=== PATIENT | male | born 1950 | race Caucasian/White ===

== ENCOUNTER 2019-03-10 15:55 | Inpatient (IN) | payer MEDICARE ==
[2019-03-10] MEDS ORDERED: SODIUM CHLORIDE 0.9% 500 ML 500 ML IV STA (16:07)
[2019-03-10] MEDS ORDERED: ACETAMINOPHEN TAB 500 MG TAB PO STA (16:07)
[2019-03-10] MEDS ORDERED: IBUPROFEN 600 MG TAB PO STA (16:07)
[2019-03-10] MEDS ORDERED: SODIUM CHLORIDE 0.9% 1,000 ML IV STA ×2 (16:07)
--- NOTE | 2019-03-10 16:14 | ED ---
Weakness HPI - General Chief complaint: Headache Stated complaint: weakness, lethargic Time Seen by Provider: 03/10/19 16:07 Source: patient, RN notes reviewed, old records reviewed Mode of arrival: wheelchair Limitations: no limitations - History of Present Illness Initial comments: This is a 69-year-old male the ER for evaluation presents today for evaluation regards to weakness headaches not feeling well 5 days. Patient has had fever. Nausea no vomiting. No chest pain or shortness of breath medical history of COPD high blood pressure. No current chest pain. No recent travel history or sick contacts MD Complaint: generalized weakness, lack of energy -: days(s) (5) Location: generalized Severity: mild Severity scale (1-10): 2 Consistency: intermittent Improves with: none Worsens with: none Context: recent illness Associated Symptoms: fever/chills, headaches, loss of appetite - Related Data Home Medications Medication Instructions Recorded Confirmed Aclidinium [place] [Tudorza 1 puff INHALATION RT-BID 03/10/19 03/10/19 Pressair] Lisinopril [Zestril] 20 mg PO DAILY 03/10/19 03/10/19 Omeprazole 20 mg PO DAILY 03/10/19 03/10/19 Allergies Allergy/AdvReac Type Severity Reaction Status Date / Time bee venom protein (honey bee) Allergy Swelling Verified 03/10/19 17:18 Penicillins Allergy Rash/Hives Verified 03/10/19 17:18 Review of Systems ROS Statement: Those systems with pertinent positive or pertinent negative responses have been documented in the HPI. ROS Other: All systems not noted in ROS Statement are negative. Past Medical History Past Medical History: COPD, GERD/Reflux, Hypertension History of Any Multi-Drug Resistant Organisms: None Reported Past Surgical History: No Surgical Hx Reported Past Psychological History: No Psychological Hx Reported Smoking Status: Former smoker Past Alcohol Use History: None Reported Past Drug Use History: Marijuana General Exam Limitations: no limitations General appearance: alert, in no apparent distress Head exam: Present: atraumatic, normocephalic, normal inspection Eye exam: Present: normal appearance, PERRL, EOMI. Absent: scleral icterus, conjunctival injection, periorbital swelling ENT exam: Present: normal exam, mucous membranes moist Neck exam: Present: normal inspection. Absent: tenderness, meningismus, lymphadenopathy Respiratory exam: Present: normal lung sounds bilaterally. Absent: respiratory distress, wheezes, rales, rhonchi, stridor Cardiovascular Exam: Present: regular rate, normal rhythm, normal heart sounds. Absent: systolic murmur, diastolic murmur, rubs, gallop, clicks GI/Abdominal exam: Present: soft, normal bowel sounds. Absent: distended, tenderness, guarding, rebound, rigid Extremities exam: Present: normal inspection, full ROM, normal capillary refill. Absent: tenderness, pedal edema, joint swelling, calf tenderness Back exam: Present: normal inspection Neurological exam: Present: alert, oriented X3, CN II-XII intact Psychiatric exam: Present: normal affect, normal mood Skin exam: Present: warm, dry, intact, normal color. Absent: rash Course Vital Signs 03/10/19 03/10/19 15:57 19:30 Temperature 100.5 F H 98.3 F Pulse Rate 99 56 L Respiratory 20 18 Rate Blood Pressure 118/84 108/75 O2 Sat by Pulse 97 96 Oximetry - Reevaluation(s) Reevaluation #1: 03/10/19 16:46 Medical records reviewed Reevaluation #2: 03/10/19 19:36 Patient feels significantly improved with fever control and hydration Medical Decision Making - Medical Decision Making 69 male the ER for evaluation of fever body aches and pains occasional headache. Patient has primary office yesterday for similar complaints. Patient presents ER for complaints of same. No meningeal signs on exam. Patient be admitted for IV antibiotics, and symptomatic treatment. Pending blood cultures - Lab Data Result diagrams: 03/10/19 16:36 03/10/19 16:36 Lab Results 03/10/19 03/10/19 03/10/19 Range/Units 16:36 16:36 16:36 WBC 9.6 (3.8-10.6) k/uL RBC 4.52 (4.30-5.90) m/uL Hgb 14.6 (13.0-17.5) gm/dL Hct 42.3 (39.0-53.0) % MCV 93.6 (80.0-100.0) fL MCH 32.4 (25.0-35.0) pg MCHC 34.6 (31.0-37.0) g/dL RDW 14.6 (11.5-15.5) % Plt Count 336 (150-450) k/uL Neutrophils % 64 % Lymphocytes % 25 % Monocytes % 8 % Eosinophils % 1 % Basophils % 0 % Neutrophils # 6.1 (1.3-7.7) k/uL Lymphocytes # 2.4 (1.0-4.8) k/uL Monocytes # 0.7 (0-1.0) k/uL Eosinophils # 0.1 (0-0.7) k/uL Basophils # 0.0 (0-0.2) k/uL Sodium 133 L (137-145) mmol/L Potassium 4.3 (3.5-5.1) mmol/L Chloride 101 (98-107) mmol/L Carbon Dioxide 19 L (22-30) mmol/L Anion Gap 13 mmol/L BUN 22 H (9-20) mg/dL Creatinine 0.99 (0.66-1.25) mg/dL Est GFR (CKD-EPI)AfAm 89 (>60 ml/min/1.73 sqM) Est GFR (CKD-EPI)NonAf 77 (>60 ml/min/1.73 sqM) Glucose 109 H (74-99) mg/dL Plasma Lactic Acid [place] 1.1 (0.7-2.0) mmol/L Calcium 9.7 (8.4-10.2) mg/dL Phosphorus 3.2 (2.5-4.5) mg/dL Magnesium 2.0 (1.6-2.3) mg/dL Total Bilirubin 1.1 (0.2-1.3) mg/dL AST 22 (17-59) U/L ALT 20 L (21-72) U/L Alkaline Phosphatase 57 (38-126) U/L Total Protein 7.6 (6.3-8.2) g/dL Albumin 4.3 (3.5-5.0) g/dL Urine Color Urine Appearance (Clear) Urine pH (5.0-8.0) Ur Specific [place] (1.001-1.035) Urine Protein (Negative) Urine Glucose (UA) (Negative) Urine Ketones (Negative) Urine Blood (Negative) Urine Nitrite (Negative) Urine Bilirubin (Negative) Urine Urobilinogen (<2.0) mg/dL Ur Leukocyte Esterase (Negative) Urine WBC (0-5) /hpf Hyaline Casts (0-2) /lpf Urine Mucus (None) /hpf Influenza Type A RNA (Not Detectd) Influenza Type B (PCR) (Not Detectd) 03/10/19 03/10/19 Range/Units 17:15 17:18 WBC (3.8-10.6) k/uL RBC (4.30-5.90) m/uL Hgb (13.0-17.5) gm/dL Hct (39.0-53.0) % MCV (80.0-100.0) fL MCH (25.0-35.0) pg MCHC (31.0-37.0) g/dL RDW (11.5-15.5) % Plt Count (150-450) k/uL Neutrophils % % Lymphocytes % % Monocytes % % Eosinophils % % Basophils % % Neutrophils # (1.3-7.7) k/uL Lymphocytes # (1.0-4.8) k/uL Monocytes # (0-1.0) k/uL Eosinophils # (0-0.7) k/uL Basophils # (0-0.2) k/uL Sodium (137-145) mmol/L Potassium (3.5-5.1) mmol/L Chloride (98-107) mmol/L Carbon Dioxide (22-30) mmol/L Anion Gap mmol/L BUN (9-20) mg/dL Creatinine (0.66-1.25) mg/dL Est GFR (CKD-EPI)AfAm (>60 ml/min/1.73 sqM) Est GFR (CKD-EPI)NonAf (>60 ml/min/1.73 sqM) Glucose (74-99) mg/dL Plasma Lactic Acid [place] (0.7-2.0) mmol/L Calcium (8.4-10.2) mg/dL Phosphorus (2.5-4.5) mg/dL Magnesium (1.6-2.3) mg/dL Total Bilirubin (0.2-1.3) mg/dL AST (17-59) U/L ALT (21-72) U/L Alkaline Phosphatase (38-126) U/L Total Protein (6.3-8.2) g/dL Albumin (3.5-5.0) g/dL Urine Color Yellow Urine Appearance Cloudy (Clear) Urine pH 6.0 (5.0-8.0) Ur Specific [place] 1.031 (1.001-1.035) Urine Protein 1+ H (Negative) Urine Glucose (UA) Negative (Negative) Urine Ketones 2+ H (Negative) Urine Blood Negative (Negative) Urine Nitrite Negative (Negative) Urine Bilirubin Negative (Negative) Urine Urobilinogen <2.0 (<2.0) mg/dL Ur Leukocyte Esterase Negative (Negative) Urine WBC 8 H (0-5) /hpf Hyaline Casts 52 H (0-2) /lpf Urine Mucus Many H (None) /hpf Influenza Type A RNA Not Detected (Not Detectd) Influenza Type B (PCR) Not Detected (Not Detectd) - Radiology Data Radiology results: report reviewed (Chest x-rays negative for acute disease), image reviewed Disposition Clinical Impression: Fever, Weakness, Myalgia Disposition: ADMITTED IP TO THIS [facility] Condition: Good Is patient prescribed a controlled substance at d/c from ED?: No Referrals: Jared Stark III, MD [Primary Care Provider] - 1-2 days
[2019-03-10 16:57] LABS: Basophils % (A) 0 %; Eosinophils # (A) 0.1 k/uL (0-0.7); Eosinophils % (A) 1 %; HCT 42.3 % (39.0-53.0); HGB 14.6 gm/dL (13.0-17.5); Lymphocytes # (A) 2.4 k/uL (1.0-4.8); Lymphocytes % (A) 25 %; MCH 32.4 pg (25.0-35.0); MCHC 34.6 g/dL (31.0-37.0); MCV 93.6 fL (80.0-100.0); Monocytes # (A) 0.7 k/uL (0-1.0); Monocytes % (A) 8 %; Neutrophils # (A) 6.1 k/uL (1.3-7.7); Neutrophils % (A) 64 %; Platelet Count 336 k/uL (150-450); RBC 4.52 m/uL (4.30-5.90); RDW 14.6 % (11.5-15.5); WBC 9.6 k/uL (3.8-10.6)
[2019-03-10 17:03] LABS: Albumin 4.3 g/dL (3.5-5.0); Calcium 9.7 mg/dL (8.4-10.2); Phosphorus 3.2 mg/dL (2.5-4.5); Potassium 4.3 mmol/L (3.5-5.1); Total Bilirubin 1.1 mg/dL (0.2-1.3); Total Protein 7.6 g/dL (6.3-8.2)
--- NOTE | 2019-03-10 17:07 | XR ---
EXAMINATION TYPE: XR chest 2V DATE OF EXAM: 03/10/2019 COMPARISON: NONE HISTORY: Short of breath TECHNIQUE: Frontal and lateral views of the chest are obtained. FINDINGS: Heart and mediastinum are normal. Lungs are clear. Costophrenic angles are clear. Bony tho rax is intact. There are no hilar masses. IMPRESSION: No active cardiopulmonary disease.
[2019-03-10 17:27] LABS: Appearance,Urine Cloudy (Clear); Bilirubin,Urine Negative (Negative); Blood,Urine Negative (Negative); Color,Urine Yellow; Glucose,Urine (UA) Negative (Negative); Hyaline Casts,Urine 52 /lpf (0-2); Ketones,Urine 2+ (Negative); Leukocyte Esterase,Urine Negative (Negative); Mucus,Urine Many /hpf; Nitrite,Urine Negative (Negative); Protein,Urine 1+ (Negative); Specific Gravity,Urine 1.031 (1.001-1.035); Urobilinogen,Urine <2.0 mg/dL (<2.0); WBC,Urine 8 /hpf (0-5)
--- NOTE | 2019-03-10 18:32 | CT ---
EXAMINATION TYPE: CT brain wo con DATE OF EXAM: 03/10/2019 COMPARISON: None HISTORY: Headache and fatigue. CT DLP: 1141.4 mGycm Automated exposure control for dose reduction was used. FINDINGS: There is mild cerebral cortical atrophy. There is no mass effect nor midline shift. There is no sign of intracranial hemorrhage. There is no evidence of cerebral edema. Calvarium is intact. There is def ormity of the left orbital floor consistent with an old blowout fracture. IMPRESSION: NO ACUTE INTRACRANIAL ABNORMALITY.
[2019-03-10] MEDS: SODIUM CHLORIDE 0.9% 500 ML 500 ML IV SCH ×3 (20:28→21:53)
[2019-03-10 21:26] VITALS: BMI 24.3
[2019-03-10] MEDS: MELATONIN 3 MG TABLET PO PRN (22:13)
[2019-03-10] MEDS: LACTATED RINGERS 1,000 ML IV SCH (23:09)
[2019-03-11] MEDS ORDERED: ACETAMINOPHEN TAB 325 MG TAB PO PRN (01:50)
[2019-03-11] MEDS: LACTATED RINGERS 1,000 ML IV SCH ×2 (02:17→11:13)
[2019-03-11] MEDS ORDERED: PANTOPRAZOLE 40 MG TABLET PO SCH (07:30)
[2019-03-11] MEDS: LISINOPRIL 20 MG TAB PO SCH (08:22)
[2019-03-11] MEDS: Omeprazole [Omeprazole] 20 MG PO SCH (08:22)
[2019-03-11] MEDS: ENOXAPARIN 40 MG/0.4 ML SYRINGE SQ SCH (08:23)
[2019-03-11] MEDS ORDERED: LISINOPRIL 20 MG TAB PO SCH (09:00)
[2019-03-11] MEDS: BUTALB/APAP/CAFF 50-325-40MG TAB PO PRN ×4 (11:22→23:56)
[2019-03-11] MEDS: ACLIDINIUM BROMIDE INHALATION SCH ×2 (11:57→19:09)
[2019-03-11] MEDS ORDERED: FAMOTIDINE 20 MG TAB PO SCH (12:45)
[2019-03-11] MEDS: SODIUM CHLORIDE 0.9% 1,000 ML IV SCH ×2 (15:34→19:49)
--- NOTE | 2019-03-11 15:51 | P.HPIM ---
History of Present Illness 69-year-old pleasant gentleman came in with complains of Flagyl is weakness and headaches has been going on for 5 days patient does have body aches no evidence of tobacco infection at this time patient rapidly had photophobia first couple days a he denied any photophobia at this time patient does have some neck pain no nuchal rigidity no evidence of meningitis at this time. Patient denied any recent sick contacts or travel. Patient denied any cough. Patient denied any dysuria patient urine is bit abnormal but not convincing for urinary tract infection patient was given Rocephin empirically for possible urinary tract infection. Urine cultures are pending blood cultures are pending patient had fever yesterday. Patient appears to have widely less most probably upper respiratory with sinusitis and sore throat and pharyngitis. Review of Systems REVIEW OF SYSTEMS: CONSTITUTIONAL: As mentioned in HPI HEENT: No recent visual problems or hearing problems. Denied any sore throat. CARDIOVASCULAR: No chest pain, orthopnea, PND, no palpitations, no syncope. PULMONARY: No shortness of breath, no cough, no hemoptysis. GASTROINTESTINAL: No diarrhea, no nausea, no vomiting, no abdominal pain. NEUROLOGICAL: No headaches, no weakness, no numbness. HEMATOLOGICAL: Denies any bleeding or petechiae. GENITOURINARY: Denies any burning micturition, frequency, or urgency. MUSCULOSKELETAL/RHEUMATOLOGICAL: Denies any joint pain, swelling, or any muscle pain. ENDOCRINE: Denies any polyuria or polydipsia. The rest of the 14-point review of systems is negative. Past Medical History Past Medical History: COPD, GERD/Reflux, Hypertension History of Any Multi-Drug Resistant Organisms: None Reported Past Surgical History: No Surgical Hx Reported Past Psychological History: No Psychological Hx Reported Smoking Status: Former smoker Past Alcohol Use History: None Reported Past Drug Use History: Marijuana - Past Family History Sister(s) Family Medical History: No Reported History Medications and Allergies Home Medications Medication Instructions Recorded Confirmed Type Aclidinium [place] [Tudorza 1 puff INHALATION RT-BID 03/10/19 03/10/19 History Pressair] Lisinopril [Zestril] 20 mg PO DAILY 03/10/19 03/10/19 History Omeprazole 20 mg PO DAILY 03/10/19 03/10/19 History Allergies Allergy/AdvReac Type Severity Reaction Status Date / Time bee venom protein (honey bee) Allergy Swelling Verified 03/10/19 17:18 Penicillins Allergy Rash/Hives Verified 03/10/19 17:18 Physical Exam Vitals: Vital Signs Temp Pulse Pulse Resp BP BP Pulse Ox 03/11/19 15:32 99.4 F 64 16 137/79 97 03/11/19 07:10 99.5 F 60 18 143/80 99 03/11/19 03:30 98.3 F 56 L 17 121/74 97 03/10/19 21:08 98.3 F 55 L 16 115/64 97 03/10/19 19:30 98.3 F 56 L 18 108/75 96 03/10/19 15:57 100.5 F H 99 20 118/84 97 Intake and Output 03/11/19 03/11/19 03/11/19 06:59 14:59 22:59 Intake Total 480 Output Total 100 Balance 380 Intake: Oral 480 Output: Urine 100 Other: # Voids 1 3 Weight 74.843 kg PHYSICAL EXAMINATION: GENERAL: The patient is alert and oriented x3, not in any acute distress. Well developed, well nourished. HEENT: Pupils are round and equally reacting to light. EOMI. No scleral icterus. No conjunctival pallor. Normocephalic, atraumatic. No pharyngeal erythema. No thyromegaly. CARDIOVASCULAR: S1 and S2 present. No murmurs, rubs, or gallops. PULMONARY: Chest is clear to auscultation, no wheezing or crackles. ABDOMEN: Soft, nontender, nondistended, normoactive bowel sounds. No palpable organomegaly. MUSCULOSKELETAL: No joint swelling or deformity. EXTREMITIES: No cyanosis, clubbing, or pedal edema. NEUROLOGICAL: Gross neurological examination did not reveal any focal deficits. SKIN: No rashes. Results CBC & Chem 7: 03/10/19 16:36 03/10/19 16:36 Labs: Abnormal Lab Results - Last 24 Hours (Table) 03/10/19 03/10/19 Range/Units 16:36 17:15 Sodium 133 L (137-145) mmol/L Carbon Dioxide 19 L (22-30) mmol/L BUN 22 H (9-20) mg/dL Glucose 109 H (74-99) mg/dL ALT 20 L (21-72) U/L Urine Protein 1+ H (Negative) Urine Ketones 2+ H (Negative) Urine WBC 8 H (0-5) /hpf Hyaline Casts 52 H (0-2) /lpf Urine Mucus Many H (None) /hpf Microbiology - Last 24 Hours (Table) 03/10/19 17:15 Urine Culture - Preliminary Urine,Voided Thrombosis Risk Factor Assmnt - Choose All That Apply Any of the Below Risk Factors Present?: Yes Each Factor Represents 1 point: Abnormal pulmonary function (COPD) Other Risk Factors: Yes Each Risk Factor Represents 2 Points: Age 61-74 years Thrombosis Risk Factor Assessment Total Risk Factor Score: 3 Thrombosis Risk Factor Assessment Level: Moderate Risk Assessment and Plan Plan: -System inflammatory response syndrome or sepsis secondary to acute viral illness mostly upper respiratory. Patient is on empiric antibiotic which she'll continue for now my suspicion is low for urinary tract infection [place]- -Hypovolemic hyponatremia patient will be continued on IV fluids expected to improve with IV fluids COPD without any acute acceleration Hypogastrics of his reflux disease next and have an hypertension -Marijuana use: Counseling was provided DVT prophylaxis early ambulation
[2019-03-11] MEDS: MELATONIN 3 MG TABLET PO PRN (23:56)
[2019-03-12] MEDS ORDERED: TEMAZEPAM 15 MG CAP PO PRN (00:06)
[2019-03-12] MEDS: BUTALB/APAP/CAFF 50-325-40MG TAB PO PRN ×2 (05:47→10:02)
[2019-03-12 07:18] LABS: HCT 35.2 % (39.0-53.0); MCH 32.3 pg (25.0-35.0); MCHC 34.1 g/dL (31.0-37.0); MCV 94.6 fL (80.0-100.0); Mean Platelet Volume 6.6; Platelet Count 214 k/uL (150-450); RBC 3.72 m/uL (4.30-5.90); RDW 13.1 % (11.5-15.5); WBC 7.6 k/uL (3.8-10.6)
[2019-03-12 07:32] LABS: African American GFR (CKD) >90 (>60 ml/min/1.73 sqM); Anion Gap 8 mmol/L; Blood Urea Nitrogen 12 mg/dL (9-20); Calcium 8.4 mg/dL (8.4-10.2); Carbon Dioxide 22 mmol/L (22-30); Chloride 104 mmol/L (98-107); Glucose 98 mg/dL (74-99); Potassium 3.8 mmol/L (3.5-5.1); Sodium 134 mmol/L (137-145)
[2019-03-12 07:54] VITALS: BP 127/74; PULSE 62; RESP 16; TEMP 98.6
[2019-03-12] MEDS: LISINOPRIL 20 MG TAB PO SCH (08:50)
[2019-03-12] MEDS: ENOXAPARIN 40 MG/0.4 ML SYRINGE SQ SCH (08:51)
[2019-03-12] MEDS: Omeprazole [Omeprazole] 20 MG PO SCH (08:53)
[2019-03-12] MEDS: ACLIDINIUM BROMIDE INHALATION SCH (09:18)
--- NOTE | 2019-03-12 12:19 | P.DS ---
Providers Date of admission: 03/10/19 19:37 Attending physician: Joni Kearney Primary care physician: Jared Coates [facility] Course: 69-year-old pleasant gentleman came in with complains of Flagyl is weakness and headaches has been going on for 5 days patient does have body aches no evidence of tobacco infection at this time patient rapidly had photophobia first couple days a he denied any photophobia at this time patient does have some neck pain no nuchal rigidity no evidence of meningitis at this time. Patient denied any recent sick contacts or travel. Patient denied any cough. Patient denied any dysuria patient urine is bit abnormal but not convincing for urinary tract infection patient was given Rocephin empirically for possible urinary tract infection. Urine cultures are pending blood cultures are pending patient had fever yesterday. Patient appears to have widely less most probably upper respiratory with sinusitis and sore throat and pharyngitis. 03/12/2019 patient is afebrile today except for mild low-grade fever yesterday. Patient is feeling much better today. patient has a viral upper respiratory illness. Patient will be discharged on empiric Ativan except for Fridays patient hyponatremia improved with IV fluids. Patient is requesting to go home. PHYSICAL EXAMINATION: GENERAL: The patient is alert and oriented x3, not in any acute distress. Well developed, well nourished. HEENT: Pupils are round and equally reacting to light. EOMI. No scleral icterus. No conjunctival pallor. Normocephalic, atraumatic. No pharyngeal erythema. No thyromegaly. CARDIOVASCULAR: S1 and S2 present. No murmurs, rubs, or gallops. PULMONARY: Chest is clear to auscultation, no wheezing or crackles. ABDOMEN: Soft, nontender, nondistended, normoactive bowel sounds. No palpable organomegaly. MUSCULOSKELETAL: No joint swelling or deformity. EXTREMITIES: No cyanosis, clubbing, or pedal edema. NEUROLOGICAL: Gross neurological examination did not reveal any focal deficits. SKIN: No rashes. Assessment and Plan Plan: -System inflammatory response syndrome or sepsis secondary to acute viral illness mostly upper respiratory. my suspicion is low for urinary tract infection. -Hypovolemic hyponatremiaimproved with IV fluids COPD without any acute acceleration gastroesophageal reflux disease hypertension Patient Condition at Discharge: Good Plan - Discharge Summary Discharge Rx Participant: Yes New Discharge Prescriptions: New Cefuroxime Axetil [Ceftin] 500 mg PO BID 5 Days #10 tab Butalb/APAP/Caff 50-325-40Mg [Fioricet 50-325-40] 1 each PO Q4HR PRN #30 tab PRN Reason: Headache Continue Lisinopril [Zestril] 20 mg PO DAILY Aclidinium [place] [Tudorza Pressair] 1 puff INHALATION RT-BID Omeprazole 20 mg PO DAILY Discharge Medication List Aclidinium [place] [Tudorza Pressair] 1 puff INHALATION RT-BID 03/10/19 [History ] Lisinopril [Zestril] 20 mg PO DAILY 03/10/19 [History] Omeprazole 20 mg PO DAILY 03/10/19 [History] Butalb/APAP/Caff 50-325-40Mg [Fioricet 50-325-40] 1 each PO Q4HR PRN #30 tab 03/12/19 [Rx] Cefuroxime Axetil [Ceftin] 500 mg PO BID 5 Days #10 tab 03/12/19 [Rx] Follow up Appointment(s)/Referral(s): Jared Stark III, MD [Primary Care Provider] - 3 Days
== END 2019-03-12 12:58 | disposition home or self-care (01) | DRG 872 ==
LOC: EC 15:55 → 4SSUR 19:37
PROVIDERS: ADMIT Hospitalist; ATTEND Hospitalist
DX: A41.9 Sepsis, unspecified organism (principal); E87.1 Hypo-osmolality and hyponatremia; E86.1 Hypovolemia; I10 Essential (primary) hypertension; J44.9 Chronic obstructive pulmonary disease, unspecified; K21.9 Gastro-esophageal reflux disease without esophagitis; Z79.899 Other long term (current) drug therapy; Z87.891 Personal history of nicotine dependence; J01.90 Acute sinusitis, unspecified; B97.89 Other viral agents as the cause of diseases classified elsewhere; J02.8 Acute pharyngitis due to other specified organisms; Z88.0 Allergy status to penicillin; Z91.030 Bee allergy status
CPT/HCPCS: 36415; 70450; 71046; 80048; 80053; 81001; 83605; 83735; 84100; 85025; 85027; 87040; 87086; 87502; 93005; 94640; 96361; 96365; 99285

== ENCOUNTER 2019-03-18 10:56 | Emergency (ER) | payer MEDICARE ==
[2019-03-18 11:11] VITALS: RESP 18
[2019-03-18] MEDS ORDERED: KETOROLAC 30 MG/ML 1 ML VIAL IVP STA (11:38)
[2019-03-18] MEDS ORDERED: SODIUM CHLORIDE 0.9% 1,000 ML IV STA (11:38)
[2019-03-18] MEDS ORDERED: ACETAMINOPHEN TAB 325 MG TAB PO STA (11:39)
--- NOTE | 2019-03-18 11:45 | ED ---
General Adult HPI - General Chief complaint: Recheck/Abnormal Lab/Rx Stated complaint: headache Time Seen by Provider: 03/18/19 11:22 Source: patient Mode of arrival: wheelchair Limitations: no limitations - History of Present Illness Initial comments: Patient is a 69-year-old male presenting to the emergency Department with complaints of headache and fatigue 2 weeks. Patient was recently in the ER for similar issue approximately 8 days ago and was admitted for 2 days. Patient just finished a course of antibiotics and was given Fioricet for headaches. Patient states the medicine is not working and he is still having headaches. Patient has not been eating and drinking as normal, no appetite. Patient also states "his skin hurts." Patient has been keeping track of his temperature, there has been no fevers however patient states he is not sure if his new thermometer is working. Patient does admit that prior to first hospital admission, he did receive the shingles vaccine. Patient's sister is here with him now, and states she has been reading that the shingles vaccine can sometimes have a lot of side effects. Patient admits to having bowel movement this morning, was normal. Patient denies any chest pain, shortness of breath, vomi ting, diarrhea, urinary complaints. - Related Data Home Medications Medication Instructions Recorded Confirmed Aclidinium Orlando [Tudorza 1 puff INHALATION RT-BID 03/10/19 03/10/19 Pressair] Lisinopril [Zestril] 20 mg PO DAILY 03/10/19 03/10/19 Omeprazole 20 mg PO DAILY 03/10/19 03/10/19 Previous Rx's Medication Instructions Recorded Butalb/APAP/Caff 50-325-40Mg 1 each PO Q4HR PRN #30 tab 03/12/19 [Fioricet 50-325-40] Cefuroxime Axetil [Ceftin] 500 mg PO BID 5 Days #10 tab 03/12/19 Ketorolac [Toradol] 10 mg PO Q8HR #15 tab 03/18/19 Ondansetron Odt [Zofran Odt] 4 mg PO Q8HR PRN #10 tab 03/18/19 Allergies Allergy/AdvReac Type Severity Reaction Status Date / Time bee venom protein (honey bee) Allergy Swelling Verified 03/18/19 11:04 Penicillins Allergy Rash/Hives Verified 03/18/19 11:04 Review of Systems ROS Statement: Those systems with pertinent positive or pertinent negative responses have been documented in the HPI. ROS Other: All systems not noted in ROS Statement are negative. Past Medical History Past Medical History: COPD, GERD/Reflux, Hypertension History of Any Multi-Drug Resistant Organisms: None Reported Past Surgical History: No Surgical Hx Reported Past Psychological History: No Psychological Hx Reported Smoking Status: Former smoker Past Alcohol Use History: None Reported Past Drug Use History: Marijuana - Past Family History Sister(s) Family Medical History: No Reported History General Exam - General Exam Comments Initial Comments: GENERAL: Well-appearing, well-nourished and in no acute distress. HEAD: Atraumatic, normocephalic. EYES: Pupils equal round and reactive to light, extraocular movements intact, sclera anicteric, conjunctiva are normal. ENT: TMs normal, nares patent, oropharynx clear without exudates. Moist mucous membranes. NECK: Normal range of motion, supple without lymphadenopathy or JVD. LUNGS: Breath sounds clear to auscultation bilaterally and equal. No wheezes rales or rhonchi. HEART: Regular rate and rhythm without murmurs, rubs or gallops. ABDOMEN: Soft, nontender, normoactive bowel sounds. No guarding, no rebound. No masses appreciated. : Deferred EXTREMITIES: Normal range of motion, no pitting or edema. No clubbing or cyanosis. NEUROLOGICAL: Cranial nerves II through XII grossly intact. Normal speech, normal gait. PSYCH: Normal mood, normal affect. SKIN: Warm, Dry, normal turgor, no rashes or lesions noted. Limitations: no limitations Course Vital Signs 03/18/19 03/18/19 11:05 14:47 Temperature 99.2 F 97.7 F Pulse Rate 71 62 Respiratory 18 18 Rate Blood Pressure 138/86 138/87 O2 Sat by Pulse 98 96 Oximetry EKG Findings - EKG Comments: EKG Findings:: Ventricular rate 59, OK interval 146, QTC 417. Sinus bradycardia. No acute ST segment changes. Medical Decision Making - Medical Decision Making Patient is 69-year-old male presenting with a headache and fatigue x 2 weeks. Patient was recently in the ER and admitted for similar issue. Patient admits to having a shingles vaccine approximately 2-1/2 weeks ago before his symptoms started. Patient was discharged with Fioricet and antibiotic for possible UTI. Patient states he finished antibiotic. Fioricet is not working his headache. Patient's exam is unremarkable. CBC, CMP, UA are all within normal limits. Lactic acid is 1.0. Beta signs are stable, afebrile. Discussed with patient this is most likely viral in nature. Patient was given Toradol and fluids and seemed to improvement with his headache. It was discussed with patient follow- up with his PCP, he is in agreement with this plan. Patient is stable for discharge at this time. Return parameters were discussed with the patient and he verbalized understanding. Case discussed with Dr. Arthur. - Lab Data Result diagrams: 03/18/19 11:27 03/18/19 11:27 Lab Results 03/18/19 03/18/19 03/18/19 Range/Units 11:27 11:27 11:27 WBC 6.0 (3.8-10.6) k/uL RBC 4.47 (4.30-5.90) m/uL Hgb 14.3 (13.0-17.5) gm/dL Hct 42.8 (39.0-53.0) % MCV 95.7 (80.0-100.0) fL MCH 32.0 (25.0-35.0) pg MCHC 33.4 (31.0-37.0) g/dL RDW 13.6 (11.5-15.5) % Plt Count 280 (150-450) k/uL Neutrophils % 72 % Lymphocytes % 19 % Monocytes % 6 % Eosinophils % 1 % Basophils % 0 % Neutrophils # 4.3 (1.3-7.7) k/uL Lymphocytes # 1.1 (1.0-4.8) k/uL Monocytes # 0.4 (0-1.0) k/uL Eosinophils # 0.1 (0-0.7) k/uL Basophils # 0.0 (0-0.2) k/uL PT 10.3 (9.0-12.0) sec INR 1.0 (<1.2) APTT 21.7 L (22.0-30.0) sec Sodium 135 L (137-145) mmol/L Potassium 4.5 (3.5-5.1) mmol/L Chloride 104 (98-107) mmol/L Carbon Dioxide 21 L (22-30) mmol/L Anion Gap 10 mmol/L BUN 15 (9-20) mg/dL Creatinine 0.79 (0.66-1.25) mg/dL Est GFR (CKD-EPI)AfAm >90 (>60 ml/min/1.73 sqM) Est GFR (CKD-EPI)NonAf >90 (>60 ml/min/1.73 sqM) Glucose 106 H (74-99) mg/dL Plasma Lactic Acid Henry (0.7-2.0) mmol/L Calcium 10.2 (8.4-10.2) mg/dL Total Bilirubin 0.5 (0.2-1.3) mg/dL AST 16 L (17-59) U/L ALT 24 (21-72) U/L Alkaline Phosphatase 48 (38-126) U/L Total Protein 7.3 (6.3-8.2) g/dL Albumin 4.3 (3.5-5.0) g/dL Urine Color Urine Appearance (Clear) Urine pH (5.0-8.0) Ur Specific [place] (1.001-1.035) Urine Protein (Negative) Urine Glucose (UA) (Negative) Urine Ketones (Negative) Urine Blood (Negative) Urine Nitrite (Negative) Urine Bilirubin (Negative) Urine Urobilinogen (<2.0) mg/dL Ur Leukocyte Esterase (Negative) 03/18/19 03/18/19 Range/Units 12:13 12:13 WBC (3.8-10.6) k/uL RBC (4.30-5.90) m/uL Hgb (13.0-17.5) gm/dL Hct (39.0-53.0) % MCV (80.0-100.0) fL MCH (25.0-35.0) pg MCHC (31.0-37.0) g/dL RDW (11.5-15.5) % Plt Count (150-450) k/uL Neutrophils % % Lymphocytes % % Monocytes % % Eosinophils % % Basophils % % Neutrophils # (1.3-7.7) k/uL Lymphocytes # (1.0-4.8) k/uL Monocytes # (0-1.0) k/uL Eosinophils # (0-0.7) k/uL Basophils # (0-0.2) k/uL PT (9.0-12.0) sec INR (<1.2) APTT (22.0-30.0) sec Sodium (137-145) mmol/L Potassium (3.5-5.1) mmol/L Chloride (98-107) mmol/L Carbon Dioxide (22-30) mmol/L Anion Gap mmol/L BUN (9-20) mg/dL Creatinine (0.66-1.25) mg/dL Est GFR (CKD-EPI)AfAm (>60 ml/min/1.73 sqM) Est GFR (CKD-EPI)NonAf (>60 ml/min/1.73 sqM) Glucose (74-99) mg/dL Plasma Lactic Acid Henry 1.0 (0.7-2.0) mmol/L Calcium (8.4-10.2) mg/dL Total Bilirubin (0.2-1.3) mg/dL AST (17-59) U/L ALT (21-72) U/L Alkaline Phosphatase (38-126) U/L Total Protein (6.3-8.2) g/dL Albumin (3.5-5.0) g/dL Urine Color Yellow Urine Appearance Clear (Clear) Urine pH 6.0 (5.0-8.0) Ur Specific [place] 1.029 (1.001-1.035) Urine Protein Trace H (Negative) Urine Glucose (UA) Negative (Negative) Urine Ketones 1+ H (Negative) Urine Blood Negative (Negative) Urine Nitrite Negative (Negative) Urine Bilirubin Negative (Negative) Urine Urobilinogen <2.0 (<2.0) mg/dL Ur Leukocyte Esterase Negative (Negative) Disposition Clinical Impression: Headache, Fatigue Disposition: HOME SELF-CARE Condition: Stable Instructions (If sedation given, give patient instructions): General Headache (ED) Additional Instructions: Please return to the Emergency Department if symptoms worsen or any other concerns. Follow-up with PCP on Thursday as discussed. Prescriptions: Ketorolac [Toradol] 10 mg PO Q8HR #15 tab Ondansetron Odt [Zofran Odt] 4 mg PO Q8HR PRN #10 tab PRN Reason: Nausea Is patient prescribed a controlled substance at d/c from ED?: No Referrals: Jared Stark III, MD [Primary Care Provider] - 1-2 days
[2019-03-18 12:03] LABS: Basophils % (A) 0 %; Eosinophils # (A) 0.1 k/uL (0-0.7); Eosinophils % (A) 1 %; HCT 42.8 % (39.0-53.0); HGB 14.3 gm/dL (13.0-17.5); Lymphocytes # (A) 1.1 k/uL (1.0-4.8); Lymphocytes % (A) 19 %; MCHC 33.4 g/dL (31.0-37.0); MCV 95.7 fL (80.0-100.0); Mean Platelet Volume 6.5; Monocytes # (A) 0.4 k/uL (0-1.0); Monocytes % (A) 6 %; Neutrophils # (A) 4.3 k/uL (1.3-7.7); Neutrophils % (A) 72 %; Platelet Count 280 k/uL (150-450); RBC 4.47 m/uL (4.30-5.90); RDW 13.6 % (11.5-15.5)
[2019-03-18 12:10] LABS: ALT 24 U/L (21-72); AST 16 U/L (17-59); African American GFR (CKD) >90 (>60 ml/min/1.73 sqM); Albumin 4.3 g/dL (3.5-5.0); Alkaline Phosphatase 48 U/L (38-126); Anion Gap 10 mmol/L; Blood Urea Nitrogen 15 mg/dL (9-20); Calcium 10.2 mg/dL (8.4-10.2); Carbon Dioxide 21 mmol/L (22-30); Chloride 104 mmol/L (98-107); Glucose 106 mg/dL (74-99); Non-African American GFR(CKD) >90 (>60 ml/min/1.73 sqM); Potassium 4.5 mmol/L (3.5-5.1); Sodium 135 mmol/L (137-145); Total Bilirubin 0.5 mg/dL (0.2-1.3); Total Protein 7.3 g/dL (6.3-8.2)
[2019-03-18 12:22] LABS: Prothrombin Time 10.3 sec (9.0-12.0)
[2019-03-18 12:25] LABS: Partial Thromboplastin Time 21.7 sec (22.0-30.0)
[2019-03-18 12:30] LABS: Appearance,Urine Clear (Clear); Bilirubin,Urine Negative (Negative); Blood,Urine Negative (Negative); Color,Urine Yellow; Glucose,Urine (UA) Negative (Negative); Ketones,Urine 1+ (Negative); Leukocyte Esterase,Urine Negative (Negative); Nitrite,Urine Negative (Negative); Protein,Urine Trace (Negative); Specific Gravity,Urine 1.029 (1.001-1.035); Urobilinogen,Urine <2.0 mg/dL (<2.0)
--- NOTE | 2019-03-18 12:30 | XR ---
EXAMINATION TYPE: XR chest 2V DATE OF EXAM: 03/18/2019 COMPARISON: 03/10/2019 HISTORY: Shortness of breath TECHNIQUE: Frontal and lateral views of the chest are obtained. FINDINGS: Scattered senescent parenchymal changes noted. Hyperinflation compatible with COPD. No evidence for infiltrate. No evidence for atelectasis. Heart size is stable. Mediastinal structures are stable and grossly unremarkable. No evidence for hilar prominence. Degenerative changes dorsal spine. IMPRESSION: 1. No evidence for acute pulmonary disease.
[2019-03-18 14:48] VITALS: BP 138/87; PULSE 62; TEMP 97.7
== END 2019-03-18 14:48 | disposition home or self-care (01) ==
LOC: EC 10:56
DX: R51 Headache (principal); R53.83 Other fatigue; J44.9 Chronic obstructive pulmonary disease, unspecified; K21.9 Gastro-esophageal reflux disease without esophagitis; I10 Essential (primary) hypertension; Z87.891 Personal history of nicotine dependence; Z88.0 Allergy status to penicillin; Z91.030 Bee allergy status; Z79.899 Other long term (current) drug therapy
CPT/HCPCS: 36415; 93005; 80053; 83605; 85025; 85610; 85730; 81003; 71046; 99284; 96374; 96361; J1885

== ENCOUNTER → 2021-09-19 | Outpatient (CLI) | payer MEDICARE ==
--- NOTE | 2021-09-19 10:22 | US ---
EXAMINATION TYPE: US abdomen complete DATE OF EXAM: 09/19/2021 COMPARISON: NONE CLINICAL HISTORY: 71-year-old male R19.7 Diarrhea. No pain. TECHNIQUE: Multiple sonographic images of the abdomen are obtained. FINDINGS: EXAM MEASUREMENTS: Liver Length: 13.7 cm Gallbladder Wall: 0.2 cm CBD: 0.4 cm Spleen: 8.6 cm Right Kidney: 8.8 x 4.4 x 5.4 cm Left Kidney: 10.6 x 4.7 x 5.5 cm Pancreas: Small portion of the pancreatic body is seen. Main pancreatic duct visualized, slightly pr ominent at 2.4 mm but nondilated. Liver: wnl Gallbladder: wnl Evidence for sonographic Angelo's sign: neg CBD: wnl Spleen: wnl Right Kidney: No hydronephrosis or masses seen Left Kidney: No hydronephrosis or masses seen Upper IVC: wnl Abd Aorta: Limited due to bowel gas. No AAA visualized with portions seen. IMPRESSION: Suboptimal visualization the pancreas. No gallstones or biliary ductal dilatation.
== END | disposition home or self-care (01) ==
LOC: RADUSWWP 07:08
PROVIDERS: ATTEND Family Medicine
DX: R19.7 Diarrhea, unspecified (principal)
CPT/HCPCS: 76700

== ENCOUNTER → 2023-07-16 | Outpatient (CLI) | payer MEDICARE ==
[2023-07-16 15:01] LABS: Basophils # (A) 0.02 X 10*3/uL (0.00-0.10); Basophils % (A) 0.3 %; Eosinophils # (A) 0.07 X 10*3/uL (0.04-0.35); HCT 45.2 % (39.6-50.0); HGB 15.3 g/dL (13.0-17.0); Lymphocytes # (A) 2.18 X 10*3/uL (0.90-5.00); Lymphocytes % (A) 32.3 %; MCH 33.2 pg (27.0-32.0); MCHC 33.8 g/dL (32.0-37.0); Mean Platelet Volume 9.8 FL (9.5-12.2); Monocytes # (A) 0.56 X 10*3/uL (0.20-1.00); Monocytes % (A) 8.3 %; NRBC Per 100 WBC 0 X 10*3/uL (0.00-0.01); Neutrophils % (A) 57.8 %; Platelet Count 236 X 10*3/uL (140-440); RBC 4.61 X 10*6/uL (4.40-5.60); RDW 13.6 % (11.5-14.5); WBC 6.75 X 10*3/uL (4.50-10.00)
[2023-07-16 15:55] LABS: ALT 28 U/L (10-49); AST 21 U/L (14-35); Albumin 4.6 g/dL (3.8-4.9); Albumin/Globulin Ratio 1.64 Ratio (1.60-3.17); Alkaline Phosphatase 66 U/L (41-126); BUN/Creat Ratio 18.33 Ratio (12.00-20.00); Blood Urea Nitrogen 16.5 mg/dL (9.0-27.0); Carbon Dioxide 23.9 mmol/L (21.6-31.8); Chloride 104 mmol/L (96-109); Chol/HDL Ratio 3.37 Ratio; Globulin 2.8 g/dL (1.6-3.3); Glucose 95 mg/dL (70-110); LDL Cholesterol,Calculated 72.3 mg/dL (0.0-131.0); Potassium 4.8 mmol/L (3.5-5.5); Sodium 141 mmol/L (135-145); Total Bilirubin 0.7 mg/dL (0.3-1.2); Total Protein 7.4 g/dL (6.2-8.2)
== END | disposition home or self-care (01) ==
LOC: LABWHC1 09:49
PROVIDERS: ATTEND Internal Medicine
DX: Z11.59 Encounter for screening for other viral diseases (principal); Z12.5 Encounter for screening for malignant neoplasm of prostate; I10 Essential (primary) hypertension
CPT/HCPCS: 86803; 80061; 80053; 84443; 83735; 85025; 36415; G0103

== ENCOUNTER → 2023-07-24 | Outpatient (CLI) | payer MEDICARE ==
--- NOTE | 2023-07-24 12:54 | CTL ---
EXAMINATION TYPE: CT Low Dose Lung DATE OF EXAM ORDERED: 07/24/2023 HISTORY: Lung cancer screening CT DLP: 84.[address] CTDI: 2.3 mGy Automated exposure control for dose reduction was used. SCREENING VISIT: First COMPARISON: None TECHNIQUE: Low dose computed tomography scan was performed through the chest at 1 mm thick sections a nd reconstructed images in multiple planes at 1 mm and [address] DIAGNOSTIC QUALITY: Satisfactory FINDINGS: There is no suspicious lung mass or nodule There is no abnormal airspace/consolidative density or abnormal interstitial density. There is no pleural effusion, pleural thickening or pneumothorax. There is no interstitial fibrosis or bronchiectasis. The great vessels chest are normal is no mediastinal, hilar or axillary adenopathy. There is a moderate hiatal hernia. No focal osseous lesions are seen. Limited evaluation the upper abdomen reveals no gross abnormality. IMPRESSION: 1. Lung RADS category 1 negative. Continue routine screening at yearly intervals. 2. Moderate hiatal hernia. 3. No acute cardiopulmonary disease.
== END | disposition home or self-care (01) ==
LOC: RADCTMAIN 09:30
PROVIDERS: ATTEND Internal Medicine
DX: Z12.2 Encounter for screening for malignant neoplasm of respiratory organs (principal); K44.9 Diaphragmatic hernia without obstruction or gangrene; F17.210 Nicotine dependence, cigarettes, uncomplicated
CPT/HCPCS: 71271

== ENCOUNTER → 2023-09-08 | Outpatient (CLI) | payer MEDICARE | LOC: CPPFTMAIN 09:10 | PROVIDERS: ATTEND Internal Medicine | DX: J44.9 Chronic obstructive pulmonary disease, unspecified (principal); F12.90 Cannabis use, unspecified, uncomplicated; Z91.030 Bee allergy status; Z88.0 Allergy status to penicillin; Z79.899 Other long term (current) drug therapy; Z87.891 Personal history of nicotine dependence | CPT/HCPCS: 94060; 94726; 94729 ==

== ENCOUNTER → 2023-10-12 | Outpatient (CLI) | payer MEDICARE ==
--- NOTE | 2023-10-13 11:25 | CA ---
Transthoracic Echo Report Name: Jim Gaona Age: 73 Gender: M : 1950 Exam Date: 10/12/2023 16:27 Exam Location: [facility] Ht (in): 69 Wt (lb): 170 Ordering Physician: Kaushik Donaldson DO Attending/Referring Phys: [employer] Worker Orville Hays RDCS Procedure CPT: Indications: J44.9 COPD Cardiac Hx: Technical Quality: Contrast 1: Total Dose (mL): Contrast 2: Total Dose (mL): MEASUREMENTS (Male / Female) Normal Values 2D ECHO LV Diastolic Diameter PLAX 3.9 cm 4.2 - 5.9 / 3.9 - 5.3 cm LV Systolic Diameter PLAX 2.4 cm IVS Diastolic Thickness 1.2 cm 0.6 - 1.0 / 0.6 - 0.9 cm LVPW Diastolic Thickness 1.2 cm 0.6 - 1.0 / 0.6 - 0.9 cm LV Relative Wall Thickness 0.6 LVOT Diameter 2.1 cm Aortic Root Diameter 3.1 cm LA Systolic Diameter LX 3.9 cm 3.0 - 4.0 / 2.7 - 3.8 cm DOPPLER AV Peak Velocity 123.1 cm/s AV Peak Gradient 6.1 mmHg AV Mean Velocity 88.1 cm/s AV Mean Gradient 3.4 mmHg AV Velocity Time Integral 27.2 cm LVOT Peak Velocity 105.0 cm/s LVOT Peak Gradient 4.4 mmHg LVOT Velocity Time Integral 23.7 cm LVOT Stroke Volume 84.6 cm??? LVOT Stroke Volume Index 43.9 ml/m??? AV Area Cont Eq vti 3.1 cm??? AV Area Cont Eq pk 3.1 cm??? MV Area PHT 2.8 cm??? Mitral E Point Velocity 83.6 cm/s Mitral A Point Velocity 114.4 cm/s Mitral E to A Ratio 0.7 MV Deceleration Time 272.5 ms TR Peak Velocity 246.9 cm/s TR Peak Gradient 24.4 mmHg PV Peak Velocity 75.4 cm/s PV Peak Gradient 2.3 mmHg FINDINGS Left Ventricle Left ventricular ejection fraction is estimated at 55-60 %. Mild left ventricular hypertrophy.Normal left ventricular wall motion. No obvious regional wall motion abnormalities. Right Ventricle Normal right ventricular size. Right Atrium Normal right atrial size. Left Atrium Normal left atrial size. Mitral Valve Mild mitral regurgitation. Aortic Valve Trileaflet aortic valve. Tricuspid Valve Trace to mild tricuspid regurgitation. Pulmonic Valve Trace pulmonic regurgitation. Pericardium No pericardial effusion. Aorta Normal size aortic root. CONCLUSIONS Left ventricular ejection fraction is estimated at 55-60 %. Mild left ventricular hypertrophy. No obvious regional wall motion abnormalities. Normal LV size and function. RVSP estimated at 30 mmHg No other significant valvular dysfunction Previewed by: Dr Nikolas Davila (Electronically Signed) Final Date: 13 October 2023 11:24
== END | disposition home or self-care (01) ==
LOC: RADECHMAIN 16:17
PROVIDERS: ATTEND Internal Medicine
DX: J44.9 Chronic obstructive pulmonary disease, unspecified (principal)
CPT/HCPCS: 93306

== ENCOUNTER → 2024-06-21 | Outpatient (CLI) | payer MEDICARE ==
[2024-06-21 15:34] LABS: ALT 21 U/L (10-49); AST 22 U/L (14-35); Albumin 4.5 g/dL (3.8-4.9); Albumin/Globulin Ratio 1.73 Ratio (1.60-3.17); Alkaline Phosphatase 70 U/L (41-126); BUN/Creat Ratio 20.78 Ratio (12.00-20.00); Blood Urea Nitrogen 18.7 mg/dL (9.0-27.0); Calcium 9.9 mg/dL (8.7-10.3); Carbon Dioxide 24.2 mmol/L (21.6-31.8); Chloride 102 mmol/L (96-109); Chol/HDL Ratio 3.29 Ratio; Globulin 2.6 g/dL (1.6-3.3); Glucose 100 mg/dL (70-110); LDL Cholesterol,Calculated 75.9 mg/dL (0.0-131.0); Magnesium 1.8 mg/dL (1.5-2.4); Potassium 4.6 mmol/L (3.5-5.5); Sodium 138 mmol/L (135-145); Total Bilirubin 0.8 mg/dL (0.3-1.2); Total Protein 7.1 g/dL (6.2-8.2)
[2024-06-21 15:37] LABS: Basophils # (A) 0.03 X 10*3/uL (0.00-0.10); Basophils % (A) 0.4 %; Eosinophils # (A) 0.05 X 10*3/uL (0.04-0.35); Eosinophils % (A) 0.7 %; HCT 46.5 % (39.6-50.0); HGB 15.7 g/dL (13.0-17.0); Lymphocytes # (A) 2.37 X 10*3/uL (0.90-5.00); Lymphocytes % (A) 34.7 %; MCH 33.2 pg (27.0-32.0); MCHC 33.8 g/dL (32.0-37.0); MCV 98.3 FL (80.0-97.0); Mean Platelet Volume 9.8 FL (9.5-12.2); Monocytes # (A) 0.61 X 10*3/uL (0.20-1.00); Monocytes % (A) 8.9 %; NRBC Per 100 WBC 0 X 10*3/uL (0.00-0.01); Neutrophils # (A) 3.75 X 10*3/uL (1.80-7.70); Platelet Count 250 X 10*3/uL (140-440); RBC 4.73 X 10*6/uL (4.40-5.60); RDW 13.3 % (11.5-14.5); WBC 6.83 X 10*3/uL (4.50-10.00)
== END | disposition home or self-care (01) ==
LOC: LABWHC1 09:17
PROVIDERS: ATTEND Internal Medicine
DX: Z00.00 Encounter for general adult medical examination without abnormal findings (principal); Z12.5 Encounter for screening for malignant neoplasm of prostate; I10 Essential (primary) hypertension
CPT/HCPCS: 80061; 80053; 84443; 83735; 85025; 36415; G0103

== ENCOUNTER → 2024-08-17 | Outpatient (CLI) | payer MEDICARE ==
--- NOTE | 2024-08-17 15:30 | CTL ---
EXAMINATION TYPE: CT Low Dose Lung DATE OF EXAM: 08/17/2024 2:53 PM COMPARISON: 07/24/2023 CLINICAL INDICATION: Male, 74 years old with history of Z12.2 ENCNTR SCREEN FOR MALIGNANT NEOPLASM OF RESP; , history of tobacco use. TECHNIQUE: Multiple axial non-contrast scans were obtained from approximately the lung apices through the upper abdomen. Coronal and sagittal reformatted images were obtained. Low dose technique was uti lized. MIP were created on a separate workstation and submitted for review. CT DLP: mGycm, Automated exposure control for dose reduction was used. CT Contrast: Contrast used: None Oral contrast used: None FINDINGS: Lack of intravenous contrast and low dose technique limits the evaluation of the vascular and soft ti ssue structures. LUNGS: No evidence of pulmonary fibrosis. No evidence of focal consolidation, pneumothorax or pleural effusion. Centrilobular emphysema changes. Nodules: RUL: None. RML: None. RLL: None. ELISABETH: None. LLL: None. AIRWAY: Patent and unremarkable. HEART: Size within normal limits. MEDIASTINUM: No gross evidence of adenopathy. VASCULATURE: No aortic aneurysm. MUSCULOSKELETAL: No acute osseous abnormalities SOFT TISSUES/LYMPH NODES: Unremarkable. LOWER NECK: No significant findings. UPPER ABDOMEN: No significant findings. IMPRESSION: 1. No clinically significant pulmonary nodules. 2. Mild emphysema. Small moderate hiatal hernia. 3. Moderate hiatal hernia CT LUNG RAD AND CT CHEST RECOMMENDATION: Lung-Rad 1 Negative: Continue annual screening with LDCT in 12 months. S Modifier (other clinically significant findings): None Recommend smoking cessation (if current smoker), or continuation of smoking cessation (if prior smoke r). Annual screening for lung cancer with low-dose computed tomography is recommended in adults ages 55 to 77 years who have a 30 pack-year smoking history and currently smoke or have quit within the pa st 15 years. Screening should be discontinued once a person has not smoked for 15 years or develops a health problem that substantially limits life expectancy or the ability or willingness to have curat kathy lung surgery. Lung rads 2021 [email or web address] [facility], , 08/17/2024 2:57 PM
== END | disposition home or self-care (01) ==
LOC: RADCTMAIN 14:27
PROVIDERS: ATTEND Internal Medicine
DX: Z12.2 Encounter for screening for malignant neoplasm of respiratory organs (principal); J43.9 Emphysema, unspecified; Z87.891 Personal history of nicotine dependence; K44.9 Diaphragmatic hernia without obstruction or gangrene
CPT/HCPCS: 71271

== ENCOUNTER 2024-11-12 09:59 | Emergency (ER) | payer MEDICARE ==
[2024-11-12 10:09] VITALS: RESP 18
[2024-11-12] MEDS: HYDROcodone/APAP 5-325MG 1 EACH TAB PO STA (10:59)
[2024-11-12 11:03] VITALS: PULSE 60
--- NOTE | 2024-11-12 11:18 | XR ---
Left shoulder. HISTORY: Pain following fall. COMPARISON: None. TECHNIQUE: 3 views left shoulder were obtained. FINDINGS: There is no fracture, dislocation, intraosseous, intra-articular soft tissue abnormality. IMPRESSION: No significant abnormality seen. [facility], Workstation: [facility], 11/12/2024 11:16 AM
--- NOTE | 2024-11-12 11:21 | XR ---
Chest and left ribs. HISTORY: Pain following trauma COMPARISON: 03/10/2019. TECHNIQUE: PA view the chest and 4 views of the ribs were obtained. FINDINGS: The lungs are clear. There is no pleural effusion or pneumothorax. The heart and pulmonary vasculature are normal. The osseous structures including the left ribs are intact. IMPRESSION: 1. No acute cardiopulmonary disease. 2. No rib fractures or other focal osseous abnormalities [facility], , 11/12/2024 11:19 AM
--- NOTE | 2024-11-12 12:26 | ED ---
General Adult HPI - General Chief complaint: Fall Stated complaint: Fall Chest Pain Time Seen by Provider: 11/12/24 10:45 Source: patient, RN notes reviewed, old records reviewed Mode of arrival: ambulatory Limitations: no limitations - History of Present Illness Initial comments: Patient is a 74-year-old male who presents emergency department with left-sided rib pain. States he fell earlier this week and injured his left frontal ribs. Did not hit his head or lose consciousness. Is not on a blood thinner. Was sore but it improved however while he was bringing in his for evaluation of weakness for her, he sneezed and coughed which really aggravated his pain he presents for further evaluation at this time. Original fall was multiple days ago. Denies any shortness of breath, nausea, vomiting, abdominal pain. Denies any fevers, chills, cough. No significant cardiac history. Presents for further evaluation at this time. - Related Data Home Medications Medication Instructions Recorded Confirmed Aclidinium Guin [Tudorza 1 puff INHALATION RT-BID 03/10/19 03/10/19 Pressair] Omeprazole 20 mg PO DAILY 03/10/19 03/10/19 lisinopriL [Zestril] 20 mg PO DAILY 03/10/19 03/10/19 Previous Rx's Medication Instructions Recorded Butalb/APAP/Caff 50-325-40Mg 1 each PO Q4HR PRN #30 tab 03/12/19 [Fioricet 50-325-40] cefuroxime axetiL [Ceftin] 500 mg PO BID 5 Days #10 tab 03/12/19 Ketorolac [Toradol] 10 mg PO Q8HR #15 tab 03/18/19 Ondansetron Odt [Zofran Odt] 4 mg PO Q8HR PRN #10 tab 03/18/19 Cyclobenzaprine [Flexeril] 5 mg PO TID PRN 5 Days #15 tablet 11/12/24 HYDROcodone/APAP 5-325MG [Lyndora 1 tab PO Q4HR PRN 3 Days #18 tab 11/12/24 5-325] Allergies Allergy/AdvReac Type Severity Reaction Status Date / Time bee venom protein (honey bee) Allergy Swelling Verified 11/12/24 10:09 Penicillins Allergy Rash/Hives Verified 11/12/24 10:09 Review of Systems ROS Statement: Those systems with pertinent positive or pertinent negative responses have been documented in the HPI. Review of Systems: CONST: Denies fever EYES: Denies blurry vision ENT: Denies nasal congestion C/V: Denies Chest pain RESP: Denies shortness of breath GI: Denies abdominal pain : Denies dysuria SKIN: Denies rash. MSK: Endorses left sided rib pain/chest wall pain. NEURO: Denies headache ROS Other: All systems not noted in ROS Statement are negative. Past Medical History Past Medical History: COPD, GERD/Reflux, Hypertension History of Any Multi-Drug Resistant Organisms: None Reported Past Surgical History: No Surgical Hx Reported Past Psychological History: No Psychological Hx Reported Smoking Status: Current some day smoker Past Alcohol Use History: None Reported Past Drug Use History: Marijuana - Past Family History Sister(s) Family Medical History: No Reported History General Exam - General Exam Comments Initial Comments: General: Appears in no acute distress. HEAD: Normal with no signs of head trauma. EYES: PERRLA, EOMI, conjunctiva normal, no discharge. ENT: Hearing grossly intact, normal oropharynx. RESPIRATORY: Clear breath sounds bilaterally. No wheezes, rales, or rhonchi. C/V: Regular rate and rhythm. S1 and S2 auscultated, peripheral pulses 2+ and intact throughout ABD: Abd is soft, nontender, nondistended EXT: Normal range of motion, no obvious deformity.No evidence of flail chest on exam. Tenderness to palpation over the left anterior lateral superior and i nferior ribs. No obvious deformities. SKIN: No rashes or lesions observed on exposed skin. NEURO: Alert and oriented x 4. Limitations: no limitations Course Vital Signs 11/12/24 11/12/24 11/12/24 10:06 11:01 12:57 Temperature 98 F 98.1 F 97.8 F Pulse Rate 65 60 60 Respiratory 18 18 18 Rate Blood Pressure 142/88 144/91 154/78 O2 Sat by Pulse 96 95 99 Oximetry Medical Decision Making - Medical Decision Making Was pt. sent in by a medical professional or institution (, PA, [employer], urgent care, hospital, or fpc...) When possible be specific @ -No Did you speak to anyone other than the patient for history (EMS, parent, family, police, friend...)? What history was obtained from this source @ -No Did you review nursing and triage notes (agree or disagree)? Why? @ -I reviewed and agree with nursing and triage notes Were old charts reviewed (outside hosp., previous admission, EMS record, old EKG, old radiological studies, urgent care reports/EKG's, fpc records)? Report findings @ -No old charts were reviewed Differential Diagnosis (chest pain, altered mental status, abdominal pain women, abdominal pain men, vaginal bleeding, weakness, fever, dyspnea, syncope, headache, dizziness, GI bleed, back pain, seizure, CVA, palpatations, mental health, musculoskeletal)? @ -Chest wall pain, rib pain, rib contusion, pneumothorax. This list is not all inclusive. EKG interpreted by me (3pts min.). @ -As above X-rays interpreted by me (1pt min.). @ -Chest x-ray with ribs reveals no obvious acute injury or process. No evidence of pneumothorax. Left shoulder x-ray negative for any obvious acute injury. CT interpreted by me (1pt min.). @ -None done U/S interpreted by me (1pt. min.). @ -None done What testing was considered but not performed or refused? (CT, X-rays, U/S, labs)? Why? @ -None What meds were considered but not given or refused? Why? @ -None Did you discuss the management of the patient with other professionals (professionals i.e. , PA, [employer], lab, RT, psych nurse, social security specialist, emergency room doctor, teacher, philanthropy officer, case resolution specialist)? Give summary @ -No Was smoking cessation discussed for >3mins.? @ -No Was critical care preformed (if so, how long)? @ -No Were there social determinants of health that impacted care today? How? (Homelessness, low income, unemployed, alcoholism, drug addiction, transportation, low edu. Level, literacy, decrease access to med. care, detention, rehab)? @ -No Was there de-escalation of care discussed even if they declined (Discuss DNR or withdrawal of care, Hospice)? DNR status @ -No What co-morbidities impacted this encounter? (DM, HTN, Smoking, COPD, CAD, Cancer, CVA, ARF, Chemo, Hep., AIDS, mental health diagnosis, sleep apnea, morbid obesity)? @ -None Was patient admitted / discharged? Hospital course, mention meds given and route, prescriptions, significant lab abnormalities, going to OR and other pertinent info. @ -Patient presents with what is likely rib contusion but cannot definitively rule out rib fractures or left shoulder injury after a fall earlier this week. Does not meet criteria for trauma activation. Does not meet criteria for code coag. We will obtain x-rays, screening EKG and patient will be administered Lyndora and a lidocaine patch for pain. He was in agreement this plan. Imaging negative for any obvious acute process. EKG shows no signs of acute ischemia. I discussed results with patient. He is feeling improved. Will be discharged home at this time with an incentive spirometer. Diagnosis is rib contusions. Strict return precautions discussed. He was in agreement this plan. Undiagnosed new problem with uncertain prognosis? @ -No Drug Therapy requiring intensive monitoring for toxicity (Heparin, Nitro, Insulin, Cardizem)? @ -No Were any procedures done? @ -No Diagnosis/symptom? @ -Fall, rib contusion Acute, or Chronic, or Acute on Chronic? @ -Acute Uncomplicated (without systemic symptoms) or Complicated (systemic symptoms)? @ -uncomplicated Side effects of treatment? @ -No Exacerbation, Progression, or Severe Exacerbation? @ -No Poses a threat to life or bodily function? How? (Chest pain, [place], NH, pneumonia, PE, COPD, DKA, ARF, appy, cholecystitis, CVA, Diverticulitis, Homicidal, Suicidal, threat to staff... and all critical care pts) @ -Unlikely at this time - EKG Data -: EKG Interpreted by Me EKG Comments: 12-lead Electrocardiogram Interpretation Note EKG was reviewed and interpreted by myself. 12-lead ECG performed at 1017 is interpreted by me as revealing normal sinus rhythm at a rate of 61 beats per minute. [place] is normal. IA interval is 165 ms, QRS duration is 94 ms, QTc is 390 ms.. There were no ST or T wave abnormalities to suggest myocardial ischemia or injury. R wave progression across the precordium was satisfactory. By my interpretation this EKG is non-diagnostic for acute ischemia. Disposition Clinical Impression: Contusion of rib on left side, Fall Disposition: HOME SELF-CARE Condition: Good Instructions (If sedation given, give patient instructions): How to Use an Incentive Spirometer (ED), Fall Prevention for Older Adults (ED), Rib Contusion (ED) Prescriptions: Cyclobenzaprine [Flexeril] 5 mg PO TID PRN 5 Days #15 tablet PRN Reason: Pain HYDROcodone/APAP 5-325MG [Lyndora 5-325] 1 tab PO Q4HR PRN 3 Days #18 tab PRN Reason: Pain Is patient prescribed a controlled substance at d/c from ED?: Yes When asked, does pt state using other controlled substances?: No If prescribed controlled substance>3 days was MAPS reviewed?: Prescribed <3 Days If opioid is for acute pain is fill amount 7 days or less?: Yes If Rx opioid, was Start Talking consent form obtained?: Yes Referrals: Kaushik Donaldson DO [Primary Care Provider] - 1-2 days Time of Disposition: 12:30
[2024-11-12 12:59] VITALS: BP 154/78; TEMP 97.8
== END 2024-11-12 12:59 | disposition home or self-care (01) ==
LOC: EC 09:59
DX: S20.212A Contusion of left front wall of thorax, initial encounter (principal); F17.200 Nicotine dependence, unspecified, uncomplicated; Z88.0 Allergy status to penicillin; Z91.030 Bee allergy status; W18.30XA Fall on same level, unspecified, initial encounter
CPT/HCPCS: 93005; 99285